=== PATIENT | female | born 1980 | race Caucasian/White ===

== ENCOUNTER 2016-09-19 01:03 | Emergency (ER) | payer OTHER ==
[2016-09-19 01:21] VITALS: BP 130/77; PULSE 82; TEMP 98.1; BMI 27.9
--- NOTE | 2016-09-19 01:48 | PDOC ---
History of Present Illness - General History Source: Patient Exam Limitations: No Limitations - History of Present Illness Initial Comments: 09/19/16 02:40 Patient is 36 year old female with no pmhx who presents to the ED s/p fall. Patient states that she was carrying a tray as she slipped over wet floor and fell on the right knee. Patient now reports right ankle pain, right knee pain and right lower back pain. Patient also reports diffuse body ache. She reports numbness of the right lower extremity. No LOC, head trauma or blurry vision. LMP 08/27 PCP - 3 C section <Porsche Darby - Last Filed: 09/19/16 02:40> <Liz Rich - Last Filed: 09/19/16 06:09> - General Chief Complaint: Injury Stated Complaint: FALL Time Seen by Provider: 09/19/16 01:12 Past History <Porsche Darby - Last Filed: 09/19/16 02:40> - Past Medical History Other medical history: Denies - Immunization History Immunization Up to Date: No - Psycho/Social/Smoking Cessation Hx Anxiety: No Suicidal Ideation: No Smoking History: Never smoked Have you smoked in the past 12 months: No Information on smoking cessation initiated: No Hx Alcohol Use: No Drug/Substance Use Hx: No Substance Use Type: None <Liz Rich - Last Filed: 09/19/16 06:09> - Past Medical History Allergies/Adverse Reactions: Allergies Allergy/AdvReac Type Severity Reaction Status Date / Time No Known Allergies Allergy Verified 09/19/16 01:21 Home Medications: Ambulatory Orders Ibuprofen [Motrin -] 600 mg PO TID #30 tablet 09/19/16 Methocarbamol [Robaxin -] 500 mg PO TID #21 tablet 09/19/16 Review of Systems - Review of Systems Able to Perform ROS?: Yes Comments:: 09/19/16 02:40 GENERAL/CONSTITUTIONAL: No fever or chills. No weakness. HEAD, EYES, EARS, NOSE AND THROAT: No change in vision. No ear pain or discharge. No sore throat. CARDIOVASCULAR: No chest pain or shortness of breath. RESPIRATORY: No cough, wheezing, or hemoptysis. GASTROINTESTINAL: No nausea, vomiting, diarrhea or constipation. GENITOURINARY: No dysuria, frequency, or change in urination. MUSCULOSKELETAL: (+)RLE pain and numbness. No neck or back pain. SKIN: No rash NEUROLOGIC: No headache, vertigo, loss of consciousness, or change in strength/ sensation. ENDOCRINE: No increased thirst. No abnormal weight change. HEMATOLOGIC/LYMPHATIC: No anemia, easy bleeding, or history of blood clots. ALLERGIC/IMMUNOLOGIC: No hives or skin allergy. <Porsche Darby - Last Filed: 09/19/16 02:40> *Physical Exam - Vital Signs Last Vital Signs Temp Pulse Resp BP Pulse Ox 98.1 F 82 19 130/77 100 09/19/16 01:15 09/19/16 01:15 09/19/16 01:15 09/19/16 01:15 09/19/16 01:15 <Porsche Darby - Last Filed: 09/19/16 02:40> - Vital Signs Last Vital Signs Temp Pulse Resp BP Pulse Ox 98.1 F 82 19 130/77 100 09/19/16 01:15 09/19/16 01:15 09/19/16 01:15 09/19/16 01:15 09/19/16 01:15 <Liz Rich - Last Filed: 09/19/16 06:09> ED Treatment Course - Medications Given in the ED: ED Medications Discontinued Medications Generic Name Dose Route Start Last Admin Trade Name Dontrell PRN Reason Stop Dose Admin Oxycodone/Acetaminophen 2 combo 09/19/16 01:49 09/19/16 01:53 Percocet 5/325 - PO 09/19/16 01:50 2 combo ONCE ONE Administration <Porsche Darby - Last Filed: 09/19/16 02:40> Medical Decision Making - Medical Decision Making 09/19/16 06:05 PT FELL AT THE [employer] WHERE SHE WORKS, WHEN SHE SLIPPED ON A SLICK FLOOR, SHE WAS CARRYING A TRAY OF CUTLERY ETC. PT COMPLAINS OF BILAT KNEE PAIN RIGHT >> LEFT PT STATES THAT SHE HAS RIGHT LEG NUMBNESS AND RIGHT LOW BACK PAIN. CT LUMBAR SPINE IS NORMAL: Patient Name: Sterling Lal THIS IS A PRELIMINARYREPORT FROM [facility] EXAM: CT lumbar spine without contrast IMAGES: [id number] EXAM DATE AND TIME: 2016-08 04:20:14.0 REASON FOR EXAM: Right leg after fall COMPARISON: None FINDINGS: The lumbar vertebrae are normally aligned. No fracture or destructive bone lesion. No stenosis of the lumbar canal. No definite disc abnormalities but this would best be evaluated with MRI. THIS DOCUMENT HAS BEEN ELECTRONICALLY SIGNED 09/19/16 06:06 PT HAS DECREASED PINPRICK SENSATION ON THE RIGHT LEG; REFLEXES ARE INRACT. BABINSKI IS NORMAL BILATERALLY. PT WILL BE TREATED WITH ANALGEISA AND WITH MUSCLE RELAXANTS. SHE WILL BE REFERRED TO [facility] FOR HER PARESTHESIAS. SHE IS STABLE FOR DISCHARGE HOME. <Liz Rich - Last Filed: 09/19/16 06:09> *DC/Admit/Observation/Transfer - Attestations Scribe Attestion: 09/19/16 02:41 Documentation prepared by JOHNNY Gomez, acting as chief medical director for Liz Rich MD. <Porsche Darby - Last Filed: 09/19/16 02:40> - Discharge Dispostion Admit: No <Liz Rich - Last Filed: 09/19/16 06:09> Diagnosis at time of Disposition: Low back pain, Musculoskeletal back pain, Paresthesia and pain of right extremity - Discharge Dispostion Disposition: HOME Condition at time of disposition: Stable - Prescriptions Prescriptions: Ibuprofen [Motrin -] 600 mg PO TID #30 tablet Methocarbamol [Robaxin -] 500 mg PO TID #21 tablet - Referrals Referrals: STAFF,NOT ON [Non Staff, Medical] - Alexandro Alvarado MD [Staff Physician] - - Patient Instructions Printed Discharge Instructions: DI for Numbness/tingling - Post Discharge Activity Work/School Note: Back to Work
[2016-09-19] MEDS ORDERED: OXYCODONE/APAP 5/325MG COMBO TABLET PO ONE (01:49)
[2016-09-19] MEDS ORDERED: OXYCODONE/APAP 5/325MG COMBO TABLET ONE (01:51)
[2016-09-19] MEDS ORDERED: METHOCARBAMOL 500 MG TABLET PO ONE (02:36)
[2016-09-19] MEDS ORDERED: METHOCARBAMOL 500 MG TABLET ONE (02:43)
== END 2016-09-19 06:10 | disposition home or self-care (01) ==
LOC: JER 01:03 → SUPCPDRO 01:03 → JER 06:37
DX: M54.5 Low back pain (principal); R20.0 Anesthesia of skin; W01.0XXA Fall on same level from slipping, tripping and stumbling without subsequent striking against object, initial encounter; Y93.89 Activity, other specified; Y92.511 Restaurant or cafe as the place of occurrence of the external cause; Y99.0 Civilian activity done for income or pay
CPT/HCPCS: 72131-TC; 73560-TC-RT; 84703; 99282-25

== ENCOUNTER 2018-04-09 01:08 | Emergency (ER) | payer OTHER ==
--- NOTE | 2018-04-09 01:28 | PDOC ---
History of Present Illness - General Stated Complaint: KNEE AND BACK PAIN/NAUSEA Time Seen by Provider: 04/09/18 01:22 Past History - Past Medical History Allergies/Adverse Reactions: Allergies Allergy/AdvReac Type Severity Reaction Status Date / Time No Known Allergies Allergy Verified 09/19/16 01:21 Home Medications: Ambulatory Orders Ibuprofen [Motrin -] 600 mg PO TID #30 tablet 09/19/16 Methocarbamol [Robaxin -] 500 mg PO TID #21 tablet 09/19/16 - Immunization History Immunization Up to Date: No - Suicide/Smoking/Psychosocial Hx Smoking History: Never smoked Have you smoked in the past 12 months: No Hx Alcohol Use: No Drug/Substance Use Hx: No Substance Use Type: None *DC/Admit/Observation/Transfer - Referrals Referrals: ON STAFF,NOT [Primary Care Provider] - - Patient Instructions - Post Discharge Activity
--- NOTE | 2018-04-09 01:29 | PDOC ---
Attending Attestation - Resident Resident Name: Prashant Lovett - ED Attending Attestation I have performed the following: I have examined & evaluated the patient, The case was reviewed & discussed with the resident, I agree w/resident's findings & plan
[2018-04-09 01:34] VITALS: BP 142/87; TEMP 97.9; BMI 32.1
--- NOTE | 2018-04-09 01:55 | PDOC ---
History of Present Illness - General Chief Complaint: Pain Stated Complaint: KNEE AND BACK PAIN/NAUSEA Time Seen by Provider: 04/09/18 01:22 History Source: Patient Exam Limitations: No Limitations - History of Present Illness Initial Comments: 04/09/18 01:49 Patient is a 37-year-old female with h/o HTN- not on meds, anemia, thyroid problem, hysterectomy, appendectomy, C/S c/o generalized body pain which started this am and progressively worsened throughout the day. States she has DAVIS frontal, b/l hips, lower back and b/l knee. Pain is generalized achy 8/10 and is unable to bend. States her daughter was diagnosed with influenza A one week ago. Denies fever, chills, dysuria, sore thorat, runny nose. She works on the [employer]. He received vaccine end of last year. PMD: Dr. Galindo PMHX: as above PSOCHX: neg etoh, cig, drug ALL: NKDA GENERAL/CONSTITUTIONAL: [No fever or chills. No weakness. No weight change.] HEAD, EYES, EARS, NOSE AND THROAT: [No change in vision. No ear pain or discharge. No sore throat.] CARDIOVASCULAR: [No chest pain or shortness of breath.] RESPIRATORY: [No cough, wheezing, or hemoptysis.] GASTROINTESTINAL: [No nausea, vomiting, diarrhea or constipation. No rectal bleeding.] GENITOURINARY: [No dysuria, frequency, or change in urination.] MUSCULOSKELETAL: (+) joint pain, (-) muscle swelling (+) pain. No neck (+) back pain.] SKIN AND BREASTS: [No rash or easy bruising.] NEUROLOGIC: (+) headache, (-) vertigo, loss of consciousness, or loss of sensation.] PSYCHIATRIC: [No depression or anxiety.] ENDOCRINE: [No increased thirst. No abnormal weight change.] HEMATOLOGIC/LYMPHATIC: [No anemia, easy bleeding, or history of blood clots.] ALLERGIC/IMMUNOLOGIC: [No hives or skin allergy. No latex allergy.] GENERAL: [The patient is awake, alert, and fully oriented, in mild painful distress.] HEAD: [Normal with no signs of trauma.] EYES: [Pupils equal, round and reactive to light, extraocular movements intact, sclera anicteric, conjunctiva clear.] ENT: [Ears normal, nares patent, oropharynx clear without exudates. Moist mucous membranes.] NECK: [Normal range of motion, supple without lymphadenopathy, JVD, or masses.] LUNGS: [Breath sounds equal, clear to auscultation bilaterally. No wheezes, and no crackles.] HEART: [Regular rate and rhythm, normal S1 and S2 without murmur, rub.] ABDOMEN: [Soft, nontender, normoactive bowel sounds. No guarding, no rebound. No masses.] EXTREMITIES: [Normal range of motion, no edema. No clubbing or cyanosis. No cords, erythema, or tenderness.] NEUROLOGICAL: [Cranial nerves II through XII grossly intact. Normal speech, normal gait.] PSYCH: [Normal mood, normal affect.] SKIN: [Warm, Dry, normal turgor, no rashes or lesions noted.] Past History - Past Medical History Allergies/Adverse Reactions: Allergies Allergy/AdvReac Type Severity Reaction Status Date / Time No Known Allergies Allergy Verified 09/19/16 01:21 Home Medications: Ambulatory Orders Ibuprofen [Motrin -] 600 mg PO TID #30 tablet 09/19/16 Methocarbamol [Robaxin -] 500 mg PO TID #21 tablet 09/19/16 COPD: No HTN: Yes - Surgical History Appendectomy: Yes - Immunization History Immunization Up to Date: No - Suicide/Smoking/Psychosocial Hx Smoking History: Never smoked Have you smoked in the past 12 months: No Hx Alcohol Use: No Drug/Substance Use Hx: No Substance Use Type: None *Physical Exam - Vital Signs Last Vital Signs Temp Pulse Resp BP Pulse Ox 97.9 F 71 18 142/87 100 04/09/18 01:26 04/09/18 01:26 04/09/18 01:26 04/09/18 01:26 04/09/18 01:26 Moderate Sedation - Procedure Monitoring Vital Signs: Procedure Monitoring Vital Signs Temperature 97.9 F 04/09/18 01:26 Pulse Rate 71 04/09/18 01:26 Respiratory Rate 18 04/09/18 01:26 Blood Pressure 142/87 04/09/18 01:26 O2 Sat by Pulse Oximetry (%) 100 04/09/18 01:26 Medical Decision Making - Medical Decision Making 02/17/19 01:49 Patient is a 37-year-old female with h/o HTN- not on meds, anemia, thyroid problem, hysterectomy, appendectomy, C/S c/o generalized body pain which started this am and progressively worsened throughout the day. States she has DAVIS frontal, b/l hips, lower back and b/l knee. Pain is generalized achy 8/10 and is unable to bend. States her daughter was diagnosed with influenza A one week ago. Denies fever, chills, dysuria, sore thorat, runny nose. She works on the [employer]. He received vaccine end of last year. Symptoms consistent with flu-like illness flu swab toradol 60mg IM 04/09/18 04:13 Influenza A and B- UA negative I discussed the physical exam findings, ancillary test results and final diagnoses with the patient. I answered all of the patient's questions. The patient was satisfied with the care received and felt comfortable with the discharge plan and treatment plan. The Patient agrees to follow up with the primary care physician within 24-72 hours. *DC/Admit/Observation/Transfer Diagnosis at time of Disposition: Myalgia Arthralgia Qualifiers: Joint pain location: unspecified Qualified Code(s): M25.50 - Pain in unspecified joint - Discharge Dispostion Disposition: HOME Condition at time of disposition: Stable - Referrals Referrals: ON STAFF,NOT [Primary Care Provider] - - Patient Instructions Printed Discharge Instructions: DI for Arthralgia, DI for Viral Syndrome Additional Instructions: Your Discharge Instructions: You must call primary care physician within 24 hours to arrange follow-up. Return to the Emergency Department with any new, persistent or worsening symptoms, for fever, chills, SOB, dizziness or any other concerning changes that may occur. - Post Discharge Activity Forms/Work/School Notes: Back to Work
[2018-04-09] MEDS ORDERED: KETOROLAC TROMETHAMINE 60 MG/2 ML VIAL IM ONE (02:00)
[2018-04-09] MEDS ORDERED: KETOROLAC TROMETHAMINE 60 MG/2 ML VIAL ONE (02:06)
[2018-04-09 03:17] LABS: URINE APPEARANCE CLEAR; URINE BILIRUBIN NEGATIVE (<2.0 mg/dL); URINE COLOR STRAW; URINE GLUCOSE (UA) NEGATIVE (NEGATIVE); URINE KETONE NEGATIVE (NEGATIVE); URINE LEUK ESTERASE NEGATIVE (NEGATIVE); URINE NITRITE NEGATIVE (NEGATIVE); URINE PROTEIN NEGATIVE (NEGATIVE); URINE UROBILINOGEN NEGATIVE mg/dL (0.2-1.0)
[2018-04-09 03:48] LABS: EPI CELLS RARE /HPF (FEW)
[2018-04-09 04:25] VITALS: PULSE 82
== END 2018-04-09 04:25 | disposition home or self-care (01) ==
LOC: JER 01:08
PROC: 3E0233Z Introduction of Anti-inflammatory into Muscle, Percutaneous Approach (ICD-10-PCS; principal; 2018-04-09)
DX: M79.18 Myalgia, other site (principal); R51 Headache; M25.562 Pain in left knee; M25.551 Pain in right hip; M25.552 Pain in left hip; I10 Essential (primary) hypertension
CPT/HCPCS: 81003; 81015; 87804; 96372; 99281-25

== ENCOUNTER 2021-11-30 17:19 | Emergency (ER) | payer OTHER ==
[2021-11-30 17:37] VITALS: BP 144/82; PULSE 82; RESP 18; TEMP 98.5; BMI 32.9
[2021-11-30] MEDS ORDERED: ONDANSETRON 4 MG/2 ML VIAL IVPUSH ONE (18:43)
[2021-11-30] MEDS ORDERED: SODIUM CHLORIDE 1,000 ML IV STA (18:43)
[2021-11-30] MEDS ORDERED: ACETAMINOPHEN 1000 MG/100 ML BAG IVPB ONE (18:46)
[2021-11-30] MEDS ORDERED: ACETAMINOPHEN INJECTION 100 ML IVPB ONE (18:49)
[2021-11-30] MEDS ORDERED: ONDANSETRON 4 MG/2 ML VIAL ONE (18:49)
[2021-11-30 19:43] LABS: BASO % 0.8 % (0-2.0); EOS % 2.3 % (0-4.5); HEMOGLOBIN 14.2 GM/dL (10.7-15.3); LYMPH % 35.4 % (8-40); MCH 29.4 pg (25.7-33.7); MCHC 33.8 g/dl (32.0-36.0); MEAN CELL VOLUME 86.9 fl (80-96); MEAN PLT VOLUME 8.4 fl (7.5-11.1); MONO % 13.5 % (3.8-10.2); PLATELET COUNT 252 10^3/uL (134-434); RBC 4.83 M/mm3 (3.60-5.2); WHITE BLOOD COUNT 3.3 K/mm3 (4.0-10.0)
[2021-11-30 19:47] LABS: EPI CELLS 6 /uL (0-25.1); HYALINE CASTS 0 /uL (0-3.1); PH,URINE 6.5 (5.0-8.0); URINE APPEARANCE CLEAR; URINE BACTERIA 167 /uL (0-1359); URINE BILIRUBIN NEGATIVE (NEGATIVE); URINE COLOR YELLOW; URINE GLUCOSE (UA) NEGATIVE (NEGATIVE); URINE KETONE NEGATIVE (NEGATIVE); URINE LEUK ESTERASE NEGATIVE (NEGATIVE); URINE NITRITE NEGATIVE (NEGATIVE); URINE PROTEIN NEGATIVE (NEGATIVE); URINE RBC 28 /uL (0-23.9); URINE UROBILINOGEN 0.2 mg/dL (0.2-1.0); URINE WBC 1 /uL (0-25.8)
[2021-11-30 20:17] LABS: CALCIUM 9.3 mg/dL (8.5-10.1)
[2021-11-30 20:18] LABS: ALBUMIN 4.2 g/dl (3.4-5.0); BLOOD UREA NITROGEN 8.6 mg/dL (7-18)
[2021-11-30 20:21] LABS: CREATININE 0.6 mg/dL (0.55-1.3)
[2021-11-30 20:22] LABS: BILIRUBIN,TOTAL 0.3 mg/dL (0.2-1); TOT PROT 8.2 g/dl (6.4-8.2)
== END 2021-12-01 01:26 | disposition home or self-care (01) ==
LOC: JER 17:19
PROC: 3E0333Z Introduction of Anti-inflammatory into Peripheral Vein, Percutaneous Approach (ICD-10-PCS; principal; 2021-11-30)
DX: R10.9 Unspecified abdominal pain (principal)
CPT/HCPCS: 36415; 74176-TC; 76830-TC; 80053; 81003; 85025; 87086; 93005; 93010; 99285-25

== ENCOUNTER 2022-06-18 15:11 | Emergency (ER) | payer OTHER ==
[2022-06-18 15:23] VITALS: BP 135/91; PULSE 83; RESP 18; TEMP 97.9; BMI 37.4
[2022-06-18] MEDS ORDERED: diazePAM 5 MG TABLET PO ONE (16:09)
[2022-06-18] MEDS ORDERED: LIDOCAINE 5% TOPICAL PATCH TP ONE (16:10)
[2022-06-18] MEDS ORDERED: KETOROLAC TROMETHAMINE 15 MG/ML VIAL IM ONE (16:11)
[2022-06-18] MEDS ORDERED: LIDOCAINE 5% TOPICAL PATCH ONE (16:13)
[2022-06-18] MEDS ORDERED: diazePAM 5 MG TABLET ONE (16:13)
[2022-06-18] MEDS ORDERED: KETOROLAC TROMETHAMINE 15 MG/ML VIAL ONE (16:14)
== END 2022-06-18 17:34 | disposition home or self-care (01) ==
LOC: JERFT 15:11
PROC: 3E023GC Introduction of Other Therapeutic Substance into Muscle, Percutaneous Approach (ICD-10-PCS; principal; 2022-06-18)
DX: S39.012A Strain of muscle, fascia and tendon of lower back, initial encounter (principal); Y99.9 Unspecified external cause status
CPT/HCPCS: 99284-25